=== PATIENT | female | born 1955 | race American Indian/Alaskan Native ===

== ENCOUNTER 2016-10-07 15:20 | Outpatient (CLI) | payer OTHER ==
--- NOTE | 2016-10-08 09:31 | Mammography Report ---
Bilateral mammogram: Compared to 07/14/12. CAD study utilized. Findings: Predominance adipose tissue bilaterally. Focal high density asymmetry measuring 4 mm in diameter noted at the mid left breast seen on MLO view. No new calcification identified at the lower posterior left breast appear to be benign. Normal axilla. No pleomorphic calcifications. Impression: Focal high density asymmetry left breast. Recommend spot mag and if necessary sonographic examination. BI-RADS CATEGORY: 0 = Needs additional imaging evaluation ACR BI-RADS MAMMOGRAPHIC CODES: 0 = Needs additional imaging evaluation; 1 = Negative; 2 = Benign; 3 = Probably benign; 4 = Suspicious; 5 = Malignant; 6 = Known biopsy-proven malignancy COMMENT: 1. Dense breast tissue, i.e., adenosis, fibrocystic changes, etc., may obscure an underlying neoplasm. 2. Approximately 10% of cancers are not detected with mammography. 3. A negative mammography report should not delay biopsy if a clinically suspicious mass is present. COMMENT: Patient follow-up letters are generated in [employer].
== END 2016-10-07 15:21 | disposition home or self-care (01) ==
LOC: MAMMO 15:20
PROVIDERS: ATTEND Obstetrics & Gynecology
DX: Z12.31 Encounter for screening mammogram for malignant neoplasm of breast (principal)
CPT/HCPCS: 77067; G0202

== ENCOUNTER 2016-11-12 09:57 | Outpatient (CLI) | payer OTHER ==
--- NOTE | 2016-11-12 10:41 | Mammography Report ---
Spot compression magnification view and 90degree lateral of focal asymmetry left breast: Findings: There is effacement noted of the density. No mass is seen. No microcalcification is noted. Impression: Benign findings. Annual followup with mammogram recommended. BI-RADS CATEGORY: 2 = Benign ACR BI-RADS MAMMOGRAPHIC CODES: 0 = Needs additional imaging evaluation; 1 = Negative; 2 = Benign; 3 = Probably benign; 4 = Suspicious; 5 = Malignant; 6 = Known biopsy-proven malignancy COMMENT: 1. Dense breast tissue, i.e., adenosis, fibrocystic changes, etc., may obscure an underlying neoplasm. 2. Approximately 10% of cancers are not detected with mammography. 3. A negative mammography report should not delay biopsy if a clinically suspicious mass is present. BI-RADS CATEGORY: 0 = Needs additional imaging evaluation ACR BI-RADS MAMMOGRAPHIC CODES: 0 = Needs additional imaging evaluation; 1 = Negative; 2 = Benign; 3 = Probably benign; 4 = Suspicious; 5 = Malignant; 6 = Known biopsy-proven malignancy COMMENT: 1. Dense breast tissue, i.e., adenosis, fibrocystic changes, etc., may obscure an underlying neoplasm. 2. Approximately 10% of cancers are not detected with mammography. 3. A negative mammography report should not delay biopsy if a clinically suspicious mass is present.
== END 2016-11-12 09:58 | disposition home or self-care (01) ==
LOC: MAMMO 09:57
PROVIDERS: ATTEND Obstetrics & Gynecology
DX: R92.8 Other abnormal and inconclusive findings on diagnostic imaging of breast (principal)
CPT/HCPCS: G0206-LT

== ENCOUNTER 2017-11-02 11:28 | Outpatient (CLI) | payer OTHER ==
--- NOTE | 2017-11-03 14:22 | Mammography Report ---
BILATERAL DIGITAL SCREENING MAMMOGRAM with CAD: 11/02/17 11:28:00 CLINICAL: Routine screening. COMPARISON:10/07/16 FINDINGS: The breasts are heterogeneously dense, which may obscure small masses. No mass, architectural distortion or suspicious calcifications. IMPRESSION: No mammographic evidence of malignancy. BI-RADS CATEGORY: 1 - - Negative RECOMMENDATION: Routine mammographic screening in one year. COMMENT: Patient follow-up letters are generated by our [employer] application.
== END 2017-11-02 11:29 | disposition home or self-care (01) ==
LOC: MAMMO 11:28
PROVIDERS: ATTEND Obstetrics & Gynecology
DX: Z12.31 Encounter for screening mammogram for malignant neoplasm of breast (principal)
CPT/HCPCS: 77067

== ENCOUNTER 2018-11-09 13:57 | Outpatient (CLI) | payer OTHER ==
--- NOTE | 2018-11-10 09:17 | Mammography Report ---
BILATERAL DIGITAL SCREENING MAMMOGRAM : 11/09/18 13:57:00 CLINICAL: Routine screening. COMPARISON:11/02/17 and 07/21/10 FINDINGS: The breasts are heterogeneously dense, which may obscure small masses. No mass, architectural distortion or suspicious calcifications. IMPRESSION: No mammographic evidence of malignancy. BI-RADS CATEGORY: 1 - - Negative RECOMMENDATION: Routine mammographic screening in one year. COMMENT: Patient follow-up letters are generated by our [employer] application.
== END 2018-11-09 13:58 | disposition home or self-care (01) ==
LOC: MAMMO 13:57
PROVIDERS: ATTEND Obstetrics & Gynecology
DX: Z12.31 Encounter for screening mammogram for malignant neoplasm of breast (principal); I10 Essential (primary) hypertension
CPT/HCPCS: 77067

== ENCOUNTER 2019-01-13 10:10 | Emergency (ER) | payer OTHER ==
[2019-01-13] MEDS ORDERED: NORCO 5/325 PO ONE (10:41)
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
[2019-01-13 11:52] VITALS: BP 138/67
== END 2019-01-13 13:02 | disposition home or self-care (01) ==
LOC: ED 10:10
DX: S83.92XA Sprain of unspecified site of left knee, initial encounter (principal); R51 Headache; I10 Essential (primary) hypertension; E11.9 Type 2 diabetes mellitus without complications; M25.522 Pain in left elbow; V49.49XA Driver injured in collision with other motor vehicles in traffic accident, initial encounter; Y93.89 Activity, other specified; Y92.488 Other paved roadways as the place of occurrence of the external cause; Y99.8 Other external cause status
CPT/HCPCS: 82962